=== PATIENT | female | born 1950 | race Native Hawaiian/Other Pacific Islander ===

== ENCOUNTER 2016-06-26 08:50 | Outpatient (CLI) | payer BC ==
[~2016-06-26 08:50] MED LIST: ALPR0.5T24 PO; GABA300C2 PO; HYDR25TA60 PO; LABETALOL100 MG OR; LISITAB PO; ROBAXIN-750750 MG PO; TYLENOL/COD OR
== END 2016-06-26 20:06 | disposition home or self-care (01) ==
LOC: CT 08:50
DX: R09.89 Other specified symptoms and signs involving the circulatory and respiratory systems (principal); M54.17 Radiculopathy, lumbosacral region
CPT/HCPCS: 36415; 82565; 84520